=== PATIENT | male | born 1965 | race Caucasian/White ===

== ENCOUNTER → 2023-05-15 06:29 | Day surgery (SDC) | payer OTHER, SELFPAY | LOC: GI 06:29 | PROVIDERS: ATTENDING PHYSICIAN Internal Medicine Gastroenterology | DX: Z12.11 Encounter for screening for malignant neoplasm of colon (principal); D12.4 Benign neoplasm of descending colon; K63.5 Polyp of colon; K57.30 Diverticulosis of large intestine without perforation or abscess without bleeding; K64.8 Other hemorrhoids; Z86.010 Personal history of colon polyps | CPT/HCPCS: 45380; 88305; 88341; 88342 ==

== ENCOUNTER → 2023-05-20 14:25 | Outpatient (REF) | payer OTHER, SELFPAY | LOC: DHCBC MAIN 14:25 | PROVIDERS: ATTENDING PHYSICIAN Internal Medicine; FAMILY PHYSICIAN Family Medicine | DX: I10 Essential (primary) hypertension (principal); Z79.818 Long term (current) use of other agents affecting estrogen receptors and estrogen levels; C61 Malignant neoplasm of prostate | CPT/HCPCS: 93306 ==

== ENCOUNTER → 2024-09-11 12:02 | Outpatient (REF) | payer OTHER, SELFPAY | LOC: RAD 12:02 | PROVIDERS: ATTENDING PHYSICIAN Family Medicine Geriatric Medicine; FAMILY PHYSICIAN Family Medicine | DX: R10.2 Pelvic and perineal pain (principal); C61 Malignant neoplasm of prostate | CPT/HCPCS: 72193; Q9967 ==

== ENCOUNTER → 2024-12-14 08:07 | Outpatient (REF) | payer OTHER, SELFPAY | LOC: RCS 08:07 | PROVIDERS: ATTENDING PHYSICIAN Internal Medicine; FAMILY PHYSICIAN Family Medicine | DX: I10 Essential (primary) hypertension (principal); Z79.818 Long term (current) use of other agents affecting estrogen receptors and estrogen levels; C61 Malignant neoplasm of prostate | CPT/HCPCS: 93306 ==